=== PATIENT | male | born 1980 | race Caucasian/White ===

== ENCOUNTER 2019-04-19 00:01 | Inpatient (IN) ==
[2019-04-19] MEDS ORDERED: ONDANSETRON 4 MG OD TAB ONE (00:19)
[2019-04-19] MEDS ORDERED: ONDANSETRON INJ 2 MG/ML 2 ML VIAL ONE (00:44)
[2019-04-19 00:48] LABS: Basophils # (auto) 0.03 K/uL (0-0.2); Basophils % (auto) 0.4 %; Eosinophils # (auto) 0.12 K/uL (0-0.5); Eosinophils % (auto) 1.5 %; Hematocrit (blood only) 41.6 % (42-52); Hemoglobin 14.4 g/dL (14.0-18.0); Immature Granulocytes # (auto) 0.03 K/uL (0.00-0.02); Immature Granulocytes % (auto) 0.4 %; Lymphocytes # (auto) 1.57 K/uL (1.2-3.4); Mean Corpuscular Hemoglobin 30.6 pg (25-34); Mean Corpuscular Hgb Conc 34.6 g/dL (32-36); Mean Corpuscular Volume 88.5 fL (80-100); Mean Platelet Volume 9.3 fL (7.4-10.4); Monocytes # (auto) 0.56 K/uL (0.11-0.59); Monocytes % (auto) 7.1 %; Neutrophils # (auto) 5.53 K/uL (1.4-6.5); Neutrophils % (auto) 70.6 %; Platelet Count 176 K/uL (130-400); RDW Coefficient of Variation 13.2 % (11.5-14.5); RDW Standard Deviation 42.5 fL (36.4-46.3); White Blood Count 7.84 K/uL (4.8-10.8)
[2019-04-19 00:59] LABS: INR 1.1 (0.9-1.1); Partial Thromboplastin Ratio 0.9; Partial Thromboplastin Time 23.3 Seconds (21.0-31.0); Prothrombin Time 10.8 Seconds (9.0-12.0)
[2019-04-19] MEDS ORDERED: IOVERSOL 100ml IV PRN (00:59)
[2019-04-19 01:06] LABS: Alanine Aminotransferase 33 U/L (12-78); Aspartate Aminotransferase 16 U/L (15-37); BUN Creatinine Ratio 12.1 (10-20); Blood Urea Nitrogen 12 mg/dl (7-18); Calcium 8.9 mg/dl (8.5-10.1); Carbon Dioxide 28 mmol/L (21-32); Chloride 107 mmol/L (98-107); Creatinine Clr Calc Pharmacy 115.9 ml/min; Est GFR (African American) 105.3; Est GFR (Non-African American) 90.9; Glucose 153 mg/dl (70-99); Magnesium 2.1 mg/dl (1.8-2.4); Potassium 3.8 mmol/L (3.5-5.1); Sodium 141 mmol/L (136-145)
[2019-04-19 01:11] LABS: Albumin Globulin Ratio 1.1 (0.9-2); Alkaline Phosphatase 82 U/L (45-117); Bilirubin,Total 0.6 mg/dl (0.2-1); Globulin 3.8 gm/dl (2.5-4.0); Total Protein 7.8 gm/dl (6.4-8.2); Troponin I < 0.015 ng/ml (0-0.045)
[2019-04-19] MEDS ORDERED: PROCHLORPERAZINE 5 MG/ML 2 ML VIAL ONE (01:45)
--- NOTE | 2019-04-19 03:15 | History & Physical Report ---
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 CTA of neck showed dissection of extracranial portion of right vertebral artery at C1 level and ascending. CTA of head shows complete occlusion of the intracranial portion of the right vertebral artery. [facility] [place] long-term dual antiplatelet therapy. After discussion with neurology Dr. Damon, patient will be begun on low-dose heparin infusion without bolus, titrating up slowly. MRI brain has been ordered for tonight. Would order follow-up CT of head again tomorrow after anticoagulated for 12 hours. Ischemic stroke without TPA protocol initiated. Present on Admission?: Yes History of Present Illness Chief Complaint: The patient presented to the emergency department this evening after awakening from sleep around 11 AM with abnormal right-sided facial sensation, and difficulty controlling his right arm and right leg. Primary Care Provider: Oly Pandya The patient is a 39-year-old male who initially developed some generalized weakness and dizziness during the afternoon of 04/18, was seen in the emergency department, received symptomatic treatment, with a negative work-up, and was then discharged home. He was awoken from sleep at 11:00 this evening by an abnormal facial sensation on the right, and decreased ability to control his right arm and right leg. His reports that he was unable to walk and needed help with balancing. He denies any recent trauma or any recent travel or sick exposures. The patient was assessed as a stroke alert, and underwent a CTA of the head without contrast which was negative. CTA of the neck showed a dissection of the right vertebral artery at the level of C1 and ascending, until the intracranial portion, seen in the CTA of the head showed an occluded right vertebral artery intracranially. The patient was assessed by tele-stroke from [facility], who suggested dual antiplatelet therapy. Allergies Allergy/AdvReac Type Severity Reaction Status Date / Time Penicillins Allergy Intermediate HAPPENED Verified 04/19/19 00:59 A CHILD Home Medications Home Medications Medication Instructions Recorded Confirmed Type ibuprofen 400 - 800 mg PO DIRECTED PRN 04/18/19 04/19/19 History acetaminophen [Tylenol Extra 500 - 1,000 mg PO DIRECTED PRN 04/19/19 04/19/19 History Strength] Past Med/Surg History Medical History No significant past medical history Surgical History No significant past surgical history Family History Other No pertinent family history Social History Preferred Language: Turkmen Communication Ability: Effective Visual Impairment: No 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 Beliefs That Will Affect Care: None marital status: Current Living Situation: Spouse and Family current occupational status: employed Other Information That Helps Us Care for You: No Feels Safe at Home: Yes Safety Concerns: Feels Safe At This Time Smoking Status: Never smoker Hx Alcohol Use: Yes Alcohol type: beer Hx Substance Use: No Review of Systems Review of Systems: The patient denies chest pain, palpitations, shortness of breath, dyspnea on exertion, cough, lower extremity swelling, sore throat, fevers, chills, sweats, weight change, fatigue, nausea, vomiting, diarrhea , constipation, abdominal pain, pelvic pain, blood in urine or stool, dysuria, urinary frequency or urgency, memory loss, loss of consciousness, rash, abnormal bruising or bleeding, generalized arthralgias or myalgias, back or neck pain, or night sweats. The review of systems is otherwise negative other than for that already noted a ilsa, and at least 10 systems have been reviewed. Physical Exam Physical Exam: The patient is awake, alert and oriented 3, well developed and well nourished, normocephalic and atraumatic, lying in bed and in no acute distress. HEENT--PERRL, EOMI, mucous membranes and oropharynx normal. Neck--supple. No JVD. No bruits. Thyroid normal, trachea midline, no adenopathy. Heart--normal S1 and S2. No murmurs, rubs or gallops. Lungs--clear bilaterally, no respiratory distress, no accessory muscle use. Abdomen--normal bowel sounds and soft. Nontender. Nondistended. Extremities--no cyanosis or clubbing. No edema. There are good distal pulses b/l. Dermatologic--normal skin turgor, normal color, no abnormal lymph nodes, no rash. Neurologic/rheumatologic-cranial nerves II through XII grossly intact except for the following abnormal right facial sensation. Abnormal vestibular function right upper extremity and right lower extremity Psychiatric--normal affect. Results & Data Vital Signs (Past 12 Hours) Vital Signs Temp Pulse Pulse Resp BP BP Pulse Ox 04/19/19 02:00 49 L 20 127/81 98 04/19/19 01:46 50 L 18 148/91 H 04/19/19 01:45 59 L 19 04/19/19 01:30 49 L 16 129/88 97 04/19/19 01:15 54 L 16 146/83 H 98 04/19/19 01:03 50 L 16 139/84 99 04/19/19 01:00 53 L 16 98 04/19/19 00:55 56 L 18 150/90 H 99 04/19/19 00:39 59 L 14 129/71 98 04/19/19 00:33 50 L 14 97 04/19/19 00:20 59 L 15 137/86 98 04/19/19 00:17 63 13 99 04/19/19 00:16 98 H 18 150/81 H 98 04/19/19 00:15 52 L 14 150/81 H 98 04/19/19 00:03 97.5 F L 56 L 18 153/94 H 98 Laboratory Results Laboratory Results WBC 7.84 K/uL (4.8-10.8) 04/19/19 00:37 RBC 4.70 M/uL (4.7-6.1) 04/19/19 00:37 Hgb 14.4 g/dL (14.0-18.0) 04/19/19 00:37 Hct 41.6 % (42-52) L 04/19/19 00:37 MCV 88.5 fL (80-100) 04/19/19 00:37 MCH 30.6 pg (25-34) 04/19/19 00:37 MCHC 34.6 g/dL (32-36) 04/19/19 00:37 RDW Std Deviation 42.5 fL (36.4-46.3) 04/19/19 00:37 RDW Coeff of [place] 13.2 % (11.5-14.5) 04/19/19 00:37 Plt Count 176 K/uL (130-400) 04/19/19 00:37 MPV 9.3 fL (7.4-10.4) 04/19/19 00:37 Immature Gran % (Auto) 0.4 % 04/19/19 00:37 Neut % (Auto) 70.6 % 04/19/19 00:37 Lymph % (Auto) 20.0 % 04/19/19 00:37 [place] % (Auto) 7.1 % 04/19/19 00:37 Eos % (Auto) 1.5 % 04/19/19 00:37 Baso % (Auto) 0.4 % 04/19/19 00:37 Immature Gran # (Auto) 0.03 K/uL (0.00-0.02) H 04/19/19 00:37 Neut # (Auto) 5.53 K/uL (1.4-6.5) 04/19/19 00:37 Lymph # (Auto) 1.57 K/uL (1.2-3.4) 04/19/19 00:37 [place] # (Auto) 0.56 K/uL (0.11-0.59) 04/19/19 00:37 Eos # (Auto) 0.12 K/uL (0-0.5) 04/19/19 00:37 Baso # (Auto) 0.03 K/uL (0-0.2) 04/19/19 00:37 PT 10.8 Seconds (9.0-12.0) 04/19/19 00:37 INR 1.1 (0.9-1.1) 04/19/19 00:37 APTT 23.3 Seconds (21.0-31.0) 04/19/19 00:37 PTT Ratio 0.9 04/19/19 00:37 Sodium 141 mmol/L (136-145) 04/19/19 00:37 Potassium 3.8 mmol/L (3.5-5.1) 04/19/19 00:37 Chloride 107 mmol/L (98-107) 04/19/19 00:37 Carbon Dioxide 28 mmol/L (21-32) 04/19/19 00:37 Anion Gap 6.0 (3-11) 04/19/19 00:37 BUN 12 mg/dl (7-18) 04/19/19 00:37 Creatinine 1.02 mg/dl (0.6-1.4) 04/19/19 00:37 Est Cr Clr Drug Dosing 115.9 ml/min 04/19/19 00:37 Est GFR ( Amer) 105.3 04/19/19 00:37 Est GFR (Non-Af Amer) 90.9 04/19/19 00:37 BUN/Creatinine Ratio 12.1 (10-20) 04/19/19 00:37 Glucose 153 mg/dl (70-99) H 04/19/19 00:37 POC Glucose 145 (70-99) H 04/19/19 00:38 Calcium 8.9 mg/dl (8.5-10.1) 04/19/19 00:37 Magnesium 2.1 mg/dl (1.8-2.4) 04/19/19 00:37 Total Bilirubin 0.6 mg/dl (0.2-1) 04/19/19 00:37 AST 16 U/L (15-37) 04/19/19 00:37 ALT 33 U/L (12-78) 04/19/19 00:37 Alkaline Phosphatase 82 U/L (45-117) 04/19/19 00:37 Troponin I < 0.015 ng/ml (0-0.045) 04/19/19 00:37 Total Protein 7.8 gm/dl (6.4-8.2) 04/19/19 00:37 Albumin 4.0 gm/dl (3.4-5.0) 04/19/19 00:37 Globulin 3.8 gm/dl (2.5-4.0) 04/19/19 00:37 Albumin/Globulin Ratio 1.1 (0.9-2) 04/19/19 00:37 Diagnostic Findings [facility] Patient: NICHOLAS REYES (Male) Age: 39 MR #: [id number] Status: ER Date: 04/19/19 00:57 Slices: [id number] History: SEVERE NECK PAIN, R/O CVA Priors: Tech: Alka Null @ [id number] Exams: CT HEAD, CTA HEAD, CTA NECK Contrast: IV Amt: 119 CC'S Accession Numbers: [id number] Preliminary Findings Only See Final Report For Complete Findings CT HEAD: No acute intracranial hemorrhage, mass effect, midline shift, hydrocephalus or acute infarct. Bony structures are intact. Soft tissues are unremarkable. CTA HEAD: There is a 1 cm complete occlusion of the right vertebral artery just proximal to the basilar artery. The remainder of the intracranial arteries are patent. No aneurysm. CTA NECK: There is mucosal irregularity and luminal narrowing at the upper portion of the right vertebral artery at the level of C1 concerning for dissection. This mucosal irregularity continues into the intracranial portion of the right vertebral artery which is then occluded as described above. No stenosis/occlusion or dissection of the carotid arteries or left vertebral artery. Radiologist: Rehana Alvarez MD Study ready at 01:02 and initial results transmitted at 01:21 Critical Value Communications Clear Time Type Notes 04/19/19 01:20 Call Doctor Regarding Other, called Dr. Francse on 04/19 01:20 (- 04:00) *This report constitutes a preliminary interpretation only. Non-acute findings felt to be unrelated to the clinical presentation may not be discussed in this report. The study will be interpreted and a final report will be generated by the local Radiologist the following shift. To reach the hospital radiology department call [phone]. If a discrepancy is found between the preliminary and final interpretations of this study, please notify us via our Client Portal at [email or web address].You can also fax this report with a description of the discrepancy, or include the final report, to our daytime fax number [phone].If faxing, please indicate the severity of discrepancy using one of the following categories: [ ] 1 - Agree/Informational [ ] 2 - Unlikely to Affect Management [ ] 3 - Possible Eventual Change of Management [ ] 4 - Probable Immediate Change of Management For all other patient related information, please fax us at [phone]. [id number] Code Status & VTE Plan Code Status Full code VTE Prophylaxis Plan VTE Prophylaxis will be ordered: Yes Critical Care Time Critical Care Time: Yes Total Critical Care Time: 65 Total critical care time was 65 minutes PG Care Time/CCT Total # of Minutes Spent Total Time Spent with Patient: Total time spent is greater than 50% in coordination of care (as documented) at patient's floor/unit and/or counseling patient: Critical Care Time: Yes Total Critical Care Time: 65
[2019-04-19] MEDS ORDERED: PHARMACIST DISCHARGE MED REC CONSULT PRN (03:18)
[2019-04-19] MEDS ORDERED: PROCHLORPERAZINE 10 MG in SYRINGE 8 ML IV PRN (03:27)
--- NOTE | 2019-04-19 04:24 | XRay Report ---
XR orbits for MRI CLINICAL HISTORY: 39 years-old Male presenting with pre-MRI, history of metal in right eye. TECHNIQUE: 3 views of the orbits were obtained. COMPARISON: None. FINDINGS: No radiopaque intraorbital foreign body. Bony orbits grossly intact. Paranasal sinuses grossly clear. Visualized portion of the calvarium intact. IMPRESSION: No intraorbital metallic foreign body to preclude MRI exam. Electronically signed by: Errol Segovia M.D. 04/19/2019 4:21 AM
--- NOTE | 2019-04-19 04:52 | Emergency Department Note ---
Entered by Tl Rodas acting as a scribe for History of Present Illness General Chief complaint: Neuro Symptoms/Deficit Stated complaint: NUMBNESS ON RIGHT SIDE,VOMITING Time Seen by Provider: 04/19/19 00:11 Source: patient History of Present Illness Onset (ago): hour(s) 1 Location: face, upper extremity and right Pain Consistency: + constant Maximum Pain Intensity: 10 Quality: + other (numbness and dysfunction) Associated symptoms: + denies other symptoms (abdominal pain) and + other (sensitivity to light, neck pain to right shoulder) The patient is a 39 y/o male who presents to the ED w/ CC of constant numbness to the right side of his face and dysfunction of his right arm beginning an hour ago. The patient states he was evaluated in the ED earlier today because he almost passed out and could not find his footing. He reports his knees were weak was well. The patient notes he was discharged with meclizine to treat possible vertigo. He states he was fine this morning. The patient reports he took a nap from 6:30pm to 11:00pm. He notes when he woke up, his neck pain increased to his right shoulder, and he started sweating. The patient states he also developed right sided numbness to his face, and it feels like his face is tingling when someone touches the right side. He notes he also was not able to walk and feels like he cannot control his right arm. The patient states he tried to put an ice pack on his neck, but it did not help. He reports he is right handed and light severely increases his head discomfort. He states he vomited three time this evening, once on his way here, a second when he was in getting into a wheelchair, and the third was in the room. The patient notes he does not have a history of migraines. He denies abdominal pain. Home Medications Home Medications Medication Instructions Recorded Confirmed Type ibuprofen 400 - 800 mg PO DIRECTED PRN 04/18/19 04/19/19 History acetaminophen [Tylenol Extra 500 - 1,000 mg PO DIRECTED PRN 04/19/19 04/19/19 History Strength] Allergies Allergy/AdvReac Type Severity Reaction Status Date / Time Penicillins Allergy Intermediate HAPPENED Verified 04/19/19 00:59 A CHILD Past Med/Surg History Medical History No significant past medical history Surgical History No significant past surgical history Family History Other No pertinent family history Social History Preferred Language: Mozamb[place] Communication Ability: Effective Visual Impairment: No 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 and A total of 10 systems reviewed and were otherwise negative Physical Exam Vital Signs Vital Signs - 24 hr 04/19/19 00:03 04/19/19 00:15 04/19/19 00:16 Temperature 36.4 C L Temperature Source Oral Sepsis Recent Fever Within 48 Hours No Sepsis Action Taken by Nursing No Action Required Pulse Rate 56 L 52 L Pulse Rate [Apical] 98 H Pulse Rate from SpO2 Sensor 55 L Pulse Rhythm [Apical] Regular Pulse Strength [Apical] Normal Respiratory Rate 18 14 18 Respiratory Effort / Characteristics Non-Labored Non-Labored Spontaneous Respiratory Depth Normal Normal Respiratory Pattern Regular Blood Pressure 153/94 H 150/81 H Blood Pressure [Right Arm] 150/81 H Blood Pressure Mean 113 104 Blood Pressure Mean [Right Arm] 104 Pulse Oximetry 98 98 98 Oxygen Delivery Method Room Air Room Air Room Air 04/19/19 00:17 04/19/19 00:20 04/19/19 00:33 Temperature Temperature Source Sepsis Recent Fever Within 48 Hours Sepsis Action Taken by Nursing Pulse Rate 63 59 L 50 L Pulse Rate [Apical] Pulse Rate from SpO2 Sensor 62 57 L 52 L Pulse Rhythm [Apical] Pulse Strength [Apical] Respiratory Rate 13 15 14 Respiratory Effort / Characteristics Respiratory Depth Respiratory Pattern Blood Pressure 137/86 Blood Pressure [Right Arm] Blood Pressure Mean 103 Blood Pressure Mean [Right Arm] Pulse Oximetry 99 98 97 Oxygen Delivery Method 04/19/19 00:39 04/19/19 00:55 04/19/19 01:00 Temperature Temperature Source Sepsis Recent Fever Within 48 Hours Sepsis Action Taken by Nursing Pulse Rate 59 L 56 L 53 L Pulse Rate [Apical] Pulse Rate from SpO2 Sensor 58 L 56 L 52 L Pulse Rhythm [Apical] Pulse Strength [Apical] Respiratory Rate 14 18 16 Respiratory Effort / Characteristics Respiratory Depth Respiratory Pattern Blood Pressure 129/71 150/90 H Blood Pressure [Right Arm] Blood Pressure Mean 90 110 Blood Pressure Mean [Right Arm] Pulse Oximetry 98 99 98 Oxygen Delivery Method 04/19/19 01:03 04/19/19 01:15 04/19/19 01:30 Temperature Temperature Source Sepsis Recent Fever Within 48 Hours Sepsis Action Taken by Nursing Pulse Rate 50 L 54 L 49 L Pulse Rate [Apical] Pulse Rate from SpO2 Sensor 52 L 54 L 49 L Pulse Rhythm [Apical] Pulse Strength [Apical] Respiratory Rate 16 16 16 Respiratory Effort / Characteristics Respiratory Depth Respiratory Pattern Blood Pressure 139/84 146/83 H 129/88 Blood Pressure [Right Arm] Blood Pressure Mean 102 104 101 Blood Pressure Mean [Right Arm] Pulse Oximetry 99 98 97 Oxygen Delivery Method 04/19/19 01:45 04/19/19 01:46 04/19/19 02:00 Temperature Temperature Source Sepsis Recent Fever Within 48 Hours Sepsis Action Taken by Nursing Pulse Rate 59 L 50 L 49 L Pulse Rate [Apical] Pulse Rate from SpO2 Sensor 48 L Pulse Rhythm [Apical] Pulse Strength [Apical] Respiratory Rate 19 18 20 Respiratory Effort / Characteristics Respiratory Depth Respiratory Pattern Blood Pressure 148/91 H 127/81 Blood Pressure [Right Arm] Blood Pressure Mean 110 96 Blood Pressure Mean [Right Arm] Pulse Oximetry 98 Oxygen Delivery Method 04/19/19 03:00 Temperature Temperature Source Sepsis Recent Fever Within 48 Hours Sepsis Action Taken by Nursing Pulse Rate 47 L Pulse Rate [Apical] Pulse Rate from SpO2 Sensor 46 L Pulse Rhythm [Apical] Pulse Strength [Apical] Respiratory Rate 7 L Respiratory Effort / Characteristics Respiratory Depth Respiratory Pattern Blood Pressure 132/87 Blood Pressure [Right Arm] Blood Pressure Mean 102 Blood Pressure Mean [Right Arm] Pulse Oximetry 99 Oxygen Delivery Method HEENT: Head - normocephalic and atraumatic. Pupils are equal, round, and reactive to light. Extraocular eye muscles are intact and sclera are anicteric. Ears - bilaterally patent canals with noninjected tympanic membranes and no evidence of hemotympanum. Nose - moist nasal mucosa without discharge. Mouth - moist buccal mucosa. Oropharynx is nonerythematous and there is no tonsillar exudate or edema noted. Neck: Supple; no JVD, nuchal rigidity, cervical lymphadenopathy, or auscultated bruits. Heart: Regular rate and rhythm. There is a normal S1 and S2 with no murmurs, clicks, or gallops appreciated. Lungs: Clear to auscultation bilaterally with no wheezes, rales, or rhonchi. Abdomen: Soft, completely nontender, nondistended, with good bowel sounds. There are no palpable pulsatile masses or hepatosplenomegaly. There is no guarding, rigidity, or rebound noted. Extremities: No evidence of cyanosis, clubbing, or edema. There are easily palpable peripheral pulses. Neuro:The patient is awake and alert, oriented to day, time, and place. Numbness to the right side of the face and tongue. Muscle strength is 5/5 in all 4 extremities. 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 There is positive cerebellar testing with pass-pointing with the right hand. Course 0017: The patient was evaluated in room B06. A complete history and physical examination were performed. Nursing notes and previous electronic medical records were reviewed.After evaluation, a STROKE alert was called and the patient was transferred to room B01. 0019: Ordered Zofran ODT 4mg PO. An IV lock will be initiated and labs were drawn. He will go emergently for CTA of the brain and neck 0043: I discussed the patients case with Dr. Mccarthy, [facility]. She is fully aware and would like to see the CT results first. 0044: Ordered Zofran 4mg IV 0119: I discussed the patients case with DR. Alvarez, [facility]. I was informed of the patients CT results. 0127: I updated the patients . She denies a history of trauma and recent visits to the chiropractor. 0131: I spoke with Dr. Mccarthy again. I updated her of the CT results, and she states a transfer to a tertiary care center is not warranted. She recommended dual antiplatelet therapy. 0145: The patient continues to have nausea and vomiting. I ordered Prochlorperazine 5 mg IV 0148: Upon reevaluation, I discussed findings and results with the patient and his . They verbalized agreement of the treatment plan. 0208: I spoke with Dr. Lake of the [facility]. The patient will be evaluated for further management and care. Administered Medications Ioversol (Optiray 320 100ml) 119 ml IV ONCE PRN PRN Reason: Interaction Checking Stop: 04/23/19 00:58 Last Admin: 04/19/19 00:59 Dose: 119 ml Documented by: [id number] Discontinued Medications Ondansetron HCl (Zofran Odt) Confirm Administered Dose 4 mg .ROUTE .STK-MED ONE Stop: 04/19/19 00:20 Last Admin: 04/19/19 00:19 Dose: 4 mg Documented by: [id number] Ondansetron HCl (Zofran) Confirm Administered Dose 4 mg .ROUTE .STK-MED ONE Stop: 04/19/19 00:45 Last Admin: 04/19/19 00:55 Dose: 4 mg Documented by: [id number] Prochlorperazine (Compazine) Confirm Administered Dose 10 mg .ROUTE .STK-MED ONE Stop: 04/19/19 01:46 Last Admin: 04/19/19 01:50 Dose: 5 mg Documented by: [id number] Medical Decision Making Differential Diagnosis Differential diagnosis includes: CVA, intracranial mass/hemorrhage, vertebral artery dissection, posterior circulation stroke. Medical Records Attestation: I reviewed the patient's medical records. Home Medications Current Medication List: was personally reviewed by me Laboratory Data Attestation: I reviewed the patient's lab results. Result diagrams: 04/19/19 00:37 04/19/19 00:37 Lab Results 04/19/19 04/19/19 04/19/19 Range/Units 00:37 00:37 00:37 WBC 7.84 (4.8-10.8) K/uL RBC 4.70 (4.7-6.1) M/uL Hgb 14.4 (14.0-18.0) g/dL Hct 41.6 L (42-52) % MCV 88.5 (80-100) fL MCH 30.6 (25-34) pg MCHC 34.6 (32-36) g/dL RDW Std Deviation 42.5 (36.4-46.3) fL RDW Coeff of Petrona 13.2 (11.5-14.5) % Plt Count 176 (130-400) K/uL MPV 9.3 (7.4-10.4) fL Immature Gran % (Auto) 0.4 % Neut % (Auto) 70.6 % Lymph % (Auto) 20.0 % Sargent % (Auto) 7.1 % Eos % (Auto) 1.5 % Baso % (Auto) 0.4 % Immature Gran # (Auto) 0.03 H (0.00-0.02) K/uL Neut # (Auto) 5.53 (1.4-6.5) K/uL Lymph # (Auto) 1.57 (1.2-3.4) K/uL Sargent # (Auto) 0.56 (0.11-0.59) K/uL Eos # (Auto) 0.12 (0-0.5) K/uL Baso # (Auto) 0.03 (0-0.2) K/uL PT 10.8 (9.0-12.0) Seconds INR 1.1 (0.9-1.1) APTT 23.3 (21.0-31.0) Seconds PTT Ratio 0.9 Sodium 141 (136-145) mmol/L Potassium 3.8 (3.5-5.1) mmol/L Chloride 107 (98-107) mmol/L Carbon Dioxide 28 (21-32) mmol/L Anion Gap 6.0 (3-11) BUN 12 (7-18) mg/dl Creatinine 1.02 (0.6-1.4) mg/dl Est Cr Clr Drug Dosing 115.9 ml/min Est GFR ( Amer) 105.3 Est GFR (Non-Af Amer) 90.9 BUN/Creatinine Ratio 12.1 (10-20) Glucose 153 H (70-99) mg/dl POC Glucose (70-99) Calcium 8.9 (8.5-10.1) mg/dl Magnesium 2.1 (1.8-2.4) mg/dl Total Bilirubin 0.6 (0.2-1) mg/dl AST 16 (15-37) U/L ALT 33 (12-78) U/L Alkaline Phosphatase 82 (45-117) U/L Troponin I < 0.015 (0-0.045) ng/ml Total Protein 7.8 (6.4-8.2) gm/dl Albumin 4.0 (3.4-5.0) gm/dl Globulin 3.8 (2.5-4.0) gm/dl Albumin/Globulin Ratio 1.1 (0.9-2) 04/19/19 Range/Units 00:38 WBC (4.8-10.8) K/uL RBC (4.7-6.1) M/uL Hgb (14.0-18.0) g/dL Hct (42-52) % MCV (80-100) fL MCH (25-34) pg MCHC (32-36) g/dL RDW Std Deviation (36.4-46.3) fL RDW Coeff of Petrona (11.5-14.5) % Plt Count (130-400) K/uL MPV (7.4-10.4) fL Immature Gran % (Auto) % Neut % (Auto) % Lymph % (Auto) % Sargent % (Auto) % Eos % (Auto) % Baso % (Auto) % Immature Gran # (Auto) (0.00-0.02) K/uL Neut # (Auto) (1.4-6.5) K/uL Lymph # (Auto) (1.2-3.4) K/uL Sargent # (Auto) (0.11-0.59) K/uL Eos # (Auto) (0-0.5) K/uL Baso # (Auto) (0-0.2) K/uL PT (9.0-12.0) Seconds INR (0.9-1.1) APTT (21.0-31.0) Seconds PTT Ratio Sodium (136-145) mmol/L Potassium (3.5-5.1) mmol/L Chloride (98-107) mmol/L Carbon Dioxide (21-32) mmol/L Anion Gap (3-11) BUN (7-18) mg/dl Creatinine (0.6-1.4) mg/dl Est Cr Clr Drug Dosing ml/min Est GFR ( Amer) Est GFR (Non-Af Amer) BUN/Creatinine Ratio (10-20) Glucose (70-99) mg/dl POC Glucose 145 H (70-99) Calcium (8.5-10.1) mg/dl Magnesium (1.8-2.4) mg/dl Total Bilirubin (0.2-1) mg/dl AST (15-37) U/L ALT (12-78) U/L Alkaline Phosphatase (45-117) U/L Troponin I (0-0.045) ng/ml Total Protein (6.4-8.2) gm/dl Albumin (3.4-5.0) gm/dl Globulin (2.5-4.0) gm/dl Albumin/Globulin Ratio (0.9-2) Imaging Data Radiologist's Impression: Radiology results as stated below per my review and the [facility] radiologist's interpretation: CT HEAD: No acute intracranial hemorrhage, mass effect, midline shift, hydrocephalus or acute infarct. Bony structures are intact. Soft tissues are unremarkable. CTA HEAD: There is a 1 cm complete occlusion of the right vertebral artery just proximal to the basilar artery. The remainder of the intracranial arteries are patent. No aneurysm. CTA NECK: There is mucosal irregularity and luminal narrowing at the upper portion of the right vertebral artery at the level of C1 concerning for dissection. This mucosal irregularity continues into the intracranial portion of the right vertebral artery which is then occluded as described above. No stenosis/occlusion or dissection of the carotid arteries or left vertebral artery. Radiologist: Rehana Alvarez MD Study ready at 01:02 and initial results transmitted at 01:21 ECG Data Attestation: I personally reviewed and interpreted this ECG as follows: Indication: bradycardia Rate (beats per minute): 56 Rhythm: sinus bradycardia Findings: no PAC, no PVC, no ST depression, no ST elevation, no acute ischemic change and no ectopy Blood Pressure Blood Pressure Findings: Elevated blood pressure Blood Pressure Disposition: further management by hospitalist DONAVAN Cano The patient is a 39 y/o male who presents to the ED w/ CC of constant numbness to the right side of his face and dysfunction of his right arm beginning an hour ago. The patient had vertiginous symptoms earlier in the day and since has developed worsening right-sided neck pain, diaphoresis, nausea, photophobia and vomiting. CT angiogram of the neck revealed a vertebral artery dissection with occlusion extending up into the intracranial portion just proximal to the basilar artery. I discussed the case with neurology at [facility]. They felt the patient could be managed conservatively here on dual antiplatelet therapy. They recommended MRI of the brain. This was ordered. I discussed the case with Dr. Dsouza and he will evaluate the patient for further management. Impression & Plan Dissecting hemorrhage of right vertebral artery Critical Care Time Critical Care Time: Yes Total Critical Care Time: 65 I have personally spent 65 minutes of critical care time in the direct management of this patient. This includes bedside care, interpretation of diagnostic studies, and testing, discussion with consultants, patient, and family members, and other required patient management activities. This 65 minutes is in excess of all separately billable procedures. Discharge Plan Visit Data *Final* Discharge Date/Time: 04/19/19 03:45 Chief Complaint: Neuro Symptoms/Deficit Stated Complaint: NUMBNESS ON RIGHT SIDE,VOMITING ED Provider: Linda Frances Discharge Problem: Dissecting hemorrhage of right vertebral artery Patient Disposition: Admitted As Inpatient Discharge Instructions Interventions: ED Discharge Assessment Last Done: 04/19/19 03:45 The scribe's documentation has been prepared under my direction and personally reviewed by me in its entirety. I confirm that the note above accurately reflects all work, treatment, procedures, and medical decision making performed by me.
[2019-04-19] MEDS ORDERED: GADOBUTROL 30ML VIAL IV PRN (05:13)
[2019-04-19] MEDS ORDERED: ICU PROTOCOL FOR HYPERGLYCEMIA PRN (05:33)
[2019-04-19] MEDS ORDERED: HEPARIN 25000 UNIT/500 ML D5W IV ONE (05:35)
[2019-04-19] MEDS: NORMOSOL-R 1,000 ML IV SCH ×2 (05:48→15:56)
[2019-04-19] MEDS ORDERED: HEPARIN SODIUM/DEXTROSE 25,000 UNITS/500 ML BAG IV SCH (06:00)
[2019-04-19 06:04] LABS: BUN Creatinine Ratio 11.6 (10-20); Calcium 8.8 mg/dl (8.5-10.1); Creatinine Clr Calc Pharmacy 124.4 ml/min; Est GFR (African American) 114.8
--- NOTE | 2019-04-19 06:07 | Critical Care Consultation ---
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 NEURO - * CAM ICU: NEGATIVE * CVA: * Secondary to RIGHT sided vertebral artery dissection with clot burden. * Initially presented earlier in day w/ c/o neck pain alone. CT cervical spine w/o significant findings. * Development of intense nausea, vomiting, and dizziness consistent w/ effects of vertebral artery injury. * c/o RIGHT sided paresthesias/numbness --> MRI to follow. * All symptoms resolved while in ED s/p Compazine administration. Should be remembered if rebound s/s of N/V. * Per ED conversation w/ Neurology - Low dose Heparin gtt. * Appreciate Neuro guidance. * Continue to address any treatable s/s. * Frequent Neuro checks. CARDIAC/VASCULAR - * No h/o CAD, HTN, HLD, etc. * While further evaluation of intracardiac shunting would typically be pursued in this case, I am uncertain of utility given findings of structural injury on CTA. * EKG: Sinus Chon@56bpm. No ST/T-wave changes. QTc 411ms. * Monitor on telemetry. RESPIRATORY - * No h/o Pulmonary disease. * Saturating well on room air GI/NUTRITION - * Progress diet as tolerated. * Prophylaxis: Famotidine. RENAL/LYTES - * No significant electrolyte derangments. - * No concerns at this time. ENDO - * No h/o DM or Thyroid Dz. * BSGs per unit protocol. ISS --> gtt per unit policy. HEME - * Stable H&H ID - * No concerns for infectious contribution at this time. LINES/IV ACCESS - * PIVs x2 DVT PROPHYLAXIS - * Heparin gtt * SCDs Thank you for allowing us to participate in the care of this patient. Please refer to my attending physician's documentation for any further recommendations. (2) Vertebral artery dissection: (3) Stroke due to occlusion of right vertebral artery: (4) Nausea and vomiting: (5) Photophobia: (6) Paresthesias: (7) Cervical pain (neck): History of Present Illness Attending Physician: Noble Lake MD History of Present Illness Patient is a 39-year-old male with no reported significant past medical history on no daily medications who presented to the emergency department earlier this morning with complaints of intense RIGHT-sided neck pain and associated dizziness, lightheadedness, nausea, and significant vomiting. In addition, he was complaining of paresthesias to the RIGHT sided arm and face. Stroke alert was called and patient was sent directly for CT of the brain as well as CTA of the head and neck. Patient received Zofran as well as Compazine in the emergency department with moderate relief of symptoms. Patient was found to have an acute RIGHT-sided vertebral artery occlusion with concerns for vertebral artery dissection distally. Neurology was consulted in the emergency department. Recommendations for low-dose heparin drip at this time. Patient was sent to MRI prior to arrival in the ICU. Upon arrival in the ICU, the patient is awake, alert, and oriented. He reports that he did notice some transient dizziness with transitioning from the litter to the bed, but other than that, he reports complete resolve of symptoms including dizziness, RIGHT-sided neck pain, photophobia, phonophobia, nausea, vo miting, and paresthesias. He reports that he now has better control of his RIGHT upper extremity with better fine motor movements. In conversation with the patient, he reports that he has been experiencing pain to the RIGHT sided neck for approximately 1 week. He does not remember a specific event which precipitated his symptoms, and throughout the week he only reported RIGHT-sided neck pain alone. He does admit that he had been experiencing severe episodes of coughing with a recent upper respiratory infection. He reports that his cough was so intense that he would "see Freire" afterwards. He does occasionally crack his neck, however he does not remember any specific event of having symptoms after manipulation of the spine. He has not undergone recent chiropractic manipulation. There is been no recent falls or trauma. The patient reports 0 pain at this time. Patient had been seen in the emergency department earlier this afternoon for symptoms of dizziness and lightheadedness. He reports that he was having the persistent pain to the RIGHT sided neck which he had been experiencing for the past week. He underwent thorough evaluation including CT scan of the cervical spine and facial bones which offered no significant diagnosis. Patient was feeling somewhat better after evaluation and treatment in the emergency department. He went home and slept for approximately 5 hours and awoke shortly after 11 PM with the intense nausea, vomiting, and paresthesias. Patient currently denies any headaches, dizziness, lightheadedness, visual disturbances, slurred speech, facial droop, unilateral weakness/numbness, chest pain, palpitations, shortness of breath, nausea, vomiting, abdominal pain, or numbness/weakness into the extremities. Allergies Allergy/AdvReac Type Severity Reaction Status Date / Time Penicillins Allergy Intermediate HAPPENED Verified 04/19/19 00:59 A CHILD Home Medications Home Medications Medication Instructions Recorded Confirmed Type ibuprofen 400 - 800 mg PO DIRECTED PRN 04/18/19 04/19/19 History acetaminophen [Tylenol Extra 500 - 1,000 mg PO DIRECTED PRN 04/19/19 04/19/19 History Strength] Patient History Medical History No significant past medical history Surgical History No significant past surgical history Family History Other No pertinent family history Social History Preferred Language: Swedish Communication Ability: Effective Visual Impairment: No Limitations [place] Required: No Beliefs That Will Affect Care: None marital status: Current Living Situation: Spouse and Family current occupational status: employed Other Information That Helps Us Care for You: No Feels Safe at Home: Yes Safety Concerns: Feels Safe At This Time Smoking Status: Never smoker Hx Alcohol Use: Yes Alcohol type: beer Hx Substance Use: No Review of Systems Review of Systems: A complete 10 point review of systems was reviewed with the patient with pertinent positives and negatives as per history of present illness. All else were negative. Physical Exam Physical Exam: VITAL SIGNS - Vital signs and nursing notes were reviewed. GENERAL - 39-year-old male appearing his stated age who is in no acute distress. Communicates well with provider and answers questions appropriately. HEAD - Normocephalic, Atraumatic. No Christian's Sign or Raccoon's Eyes. No depressed skull fractures palpable. EYES - PERRL with EOMI bilaterally. Sclera anicteric. Palpebral conjunctiva pink and moist with no injection noted. EARS - No deformities of external structures noted on gross examination bilaterally. No pain elicited with palpation of the tragus bilaterally. External auditory canals without discharge or otorrhea. Tympanic membranes pearly wei without retraction or bulging. No fluid or purulent material visualized behind the TM. Handle of malleus, umbo, cone of light, pars tensa/flaccid all easily visualized. NOSE - Midline and without cyanosis. No epistaxis or purulent drainage noted. Septum midline without deviation or septal hematoma noted. MOUTH/OROPHARYNX - Without perioral cyanosis. Buccal mucosa pink and moist and without leukoplakia. Tongue midline with equal elevation of palate bilaterally. No tonsillar hypertrophy, erythema, or exudates noted. Good dentition noted. NECK - Neck with FROM. Supple to palpation. No lymphadenopathy noted. No nuchal rigidity. LUNGS - Chest wall symmetric without accessory muscle use, intercostals retractions, or central cyanosis. Normal vesicular breath sounds CTA B/L. No wheezes, rales, or rhonchi appreciated. CARDIAC - RRR with S1/S2. No murmur, rubs, or gallops appreciated. ABDOMEN - Abdominal contour flat without pulsations or visible masses. BS normoactive all four quadrants. No tenderness, palpable masses, hepatospleno megaly, or ascites noted. EXTREMITIES - No pretibial edema present. +3/5 radial and dorsalis pedis pulses palpated throughout. FROM with no tremors, fasciculations, or clonus noted on PROM throughout. +5/5 strength noted in UE/LE bilaterally. NEUROLOGIC - Cranial nerves II through XII grossly intact. Sensory intact to light touch throughout. Patellar reflexes +2/4. Patient able to perform rapid al ternating movements appropriately. Negative Romberg and Pronator Drift. PSYCH - A&Ox3 and cooperates fully with examiner. Pt is very pleasant and interacts well with examiner. Results & Data Vital Signs (Past 12 Hours) Vital Signs Temp Pulse Pulse Resp BP BP Pulse Ox 04/19/19 04:33 18 96 04/19/19 03:45 56 L 15 141/89 H 97 04/19/19 03:30 65 17 134/88 99 04/19/19 03:15 68 17 140/94 98 04/19/19 03:00 47 L 7 L 132/87 99 04/19/19 02:00 49 L 20 127/81 98 04/19/19 01:46 50 L 18 148/91 H 04/19/19 01:45 59 L 19 04/19/19 01:30 49 L 16 129/88 97 04/19/19 01:15 54 L 16 146/83 H 98 04/19/19 01:03 50 L 16 139/84 99 04/19/19 01:00 53 L 16 98 04/19/19 00:55 56 L 18 150/90 H 99 04/19/19 00:39 59 L 14 129/71 98 04/19/19 00:33 50 L 14 97 04/19/19 00:20 59 L 15 137/86 98 04/19/19 00:17 63 13 99 04/19/19 00:16 98 H 18 150/81 H 98 04/19/19 00:15 52 L 14 150/81 H 98 04/19/19 00:03 36.4 C L 56 L 18 153/94 H 98 PG Care Time/CCT Total # of Minutes Spent Total Time Spent with Patient: Total time spent is greater than 50% in coordination of care (as documented) at patient's floor/unit and/or counseling patient:
[2019-04-19] MEDS: FAMOTIDINE 20 MG in SYRINGE 3 ML IV SCH ×2 (06:11→16:58)
--- NOTE | 2019-04-19 07:14 | CT Scan Report ---
CT head/brain wo/w con CLINICAL HISTORY: Severe neck pain. Evaluate for cerebrovascular accident. COMPARISON STUDY: No previous studies for comparison. TECHNIQUE: Unenhanced and arterial phase images of the head were obtained. Intravenous injection of 1 19 cc Optiray 320 IV was uneventful. Sagittal coronal reconstructed reviewed as well as maximal inten sity projections on an independent 3-D workstation. Automated exposure control was utilized for the s tudy. A dose lowering technique was utilized adhering to the principles of ALARA. FINDINGS: No acute intracranial hemorrhage, midline shift or mass effect is present. Ventricular syst em is normal. Basilar cisterns are patent. There are no extra-axial collections. There are no finding s to suggest acute dural sinus thrombosis or acute territorial infarct. There are no significant calv arial abnormalities. Visual portions of the sinuses are clear. The bilateral M1, M2 2, A1 and A2 segments are patent. The anterior circulation is intact. There is o cclusion of the distal right vertebral artery. There is luminal irregularity of the distal cervical p ortion of the right vertebral artery suggestive of dissection which is better depicted on the CTA of the neck. Remainder of the posterior circulation remains intact. There is no intracranial aneurysm. IMPRESSION: 1. No acute intracranial hemorrhage or mass effect. 2. Occlusion of the distal right vertebral artery with luminal irregularity of the distal cervical po rtion of the right vertebral artery. The findings suggest dissection with occlusion of the intracrani al portion of the right vertebral artery. Electronically signed by: Yong Martinez M.D. 04/19/2019 7:13 AM
--- NOTE | 2019-04-19 07:29 | CT Scan Report ---
CT ANGIOGRAPHY OF THE NECK WITH CONTRAST CLINICAL HISTORY: Severe neck pain. COMPARISON STUDY: Cervical spine CT April 18, 2019. Technique: CT angiography of the carotid and vertebral arteries was obtained using [employer] 320 IV and 3D reconstruction on an independent workstation. NASCET criteria was utilized. Automated exposure c ontrol was utilized for the study. A dose lowering technique was utilized adhering to the principles of ALARA. CT DOSE: 1269.78 mGy.cm Findings: The bilateral common carotid and cervical internal carotid arteries are patent. There is no stenosis or dissection within these vessels. Note is made of significant luminal irregularity of the distal cervical portion of the right vertebral artery with occlusion of the distal right vertebral a rtery. This favors a dissection. The left vertebral artery is patent. Lung apices are clear. There is medialization of the right vocal cord. No cervical lymphadenopathy is present. There is no cervical spine fracture. IMPRESSION: 1. Significant luminal irregularity and narrowing of the cervical right vertebral artery at the C1 le camila and occlusion of the distal intracranial right vertebral artery. These findings suggest dissectio n with resultant occlusion. 2. Medialization of the right vocal cord which raises the possibility of vocal cord paralysis. Electronically signed by: Yong Martinez M.D. 04/19/2019 7:27 AM
[2019-04-19 07:47] LABS: Estimated Average Glucose 157 mg/dl; Hemoglobin A1C 7.1 % (4.5-5.6)
--- NOTE | 2019-04-19 08:01 | Magnetic Resonance Report ---
MRI OF THE BRAIN WITHOUT AND WITH IV CONTRAST CLINICAL HISTORY: vertebral artery dissection extends intracranial COMPARISON STUDY: Head CT and CTA of the head performed earlier today. TECHNIQUE: Utilizing a 1.5 Noemi magnet and dedicated coil, multiplanar, multiecho imaging of the br ain was performed pre and postcontrast administration. IV administration of 10 mL [address] contra [address] was uneventful. FINDINGS: There are no foci of restricted diffusion to suggest acute infarct. No acute intracranial h emorrhage, midline shift or mass effect is present. Brain volume is normal. Ventricular system is nor mal. Basilar cisterns are patent. There is no intracranial mass or pathologic enhancement. Abnormal f low-void for the distal right vertebral artery is noted. This is better depicted on prior CTA. Orbits are unremarkable. IMPRESSION: 1. No acute intracranial findings. 2. Abnormal flow-void for the distal right vertebral artery suggestive of vessel occlusion which is b maury depicted on CTA of the head performed earlier today. Electronically signed by: Yong Martinez M.D. 04/19/2019 8:00 AM
--- NOTE | 2019-04-19 09:35 | Neurology Consultation ---
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 Despite his vertiginous feelings, numbness and paresthesias of the face and limbs as well as weakness in the right arm and leg, he did not have an actual stroke. MRI of the brain was unremarkable. I believe he had transient neurologic dysfunction due to decrease flow from the dissection in the right posterior fossa. On neurologic examination today he has no focal findings, meningeal signs, or encephalopathy. Patient does have some cerebral vascular risk factors as noted by elevated lipids and hemoglobin A1c. His blood pressure has been mildly elevated as well since admission. Recommendations: 1. Discontinue heparin. The patient was already improved for several hours, by the time the heparin was started this morning. 2. Initiate 81 mg aspirin +70 5 mg clopidogrel daily. I will likely do this for at least 4-6 weeks then consider 81 mg aspirin by itself. 3. Increase activity as able. 4. Avoid his usual work or heavy lifting for several weeks. He could do light duty (for example, at a desk) until we follow up in clinic in several weeks. 5. Follow-up with his PCP Dr. Pandya for his hypertension, dyslipidemia, and elevated glucose. 6. Awaiting echocardiogram results. Overall, I spent a total of 120 minutes with this case including review of records, review of MRI films and CT angiography films, direct evaluation the pa tient at bedside and discussion of the case with the patient at bedside, his at bedside, nursing staff at bedside, Dr. Pires, and Dr. Nguyen including differential diagnosis and treatment options. History of Present Illness Reason for Consultation: Patient is A 39-year-old, who I was asked to see at the request of Dr. Lake, for neurologic consultation regarding carotid dissection Requesting Physician: Dr. Lake Attending Physician: Shankar Nguyen MD History of Present Illness Patient has no history of significant medical problems including no cardiac, hypertension, diabetes, dyslipidemia, or cigarette smoking history. Patient did have pulmonary sarcoidosis diagnosed by Dr. Bosch via bronchoscopy in 2007 which was successfully treated and is not an active problem currently. He last saw Dr. Bosch in 2012. About 2 weeks ago the patient had a significant upper respiratory tract infection creating a significant cough. He claims this was a very violent cough of a frequent repetitive nature. About a week ago it abated. One week ago patient noted some right sided neck pain. It was along the lateral aspect of the right neck from just behind the ear at the cervical occipital junction down along the side to the trapezius muscle. It was an annoying pain and he had no other symptoms associated. 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 He was under cars and moving his neck from side to side performing his work. In the morning of April 18 he was again working underneath vehicle as before and he had the onset of some vertiginous feelings and lightheadedness sometime around 07-10. He did not pass out. He became very hot and diaphoretic. At 1 point in the morning, he noticed his neck having a severe pain and got out from underneath the vehicle and few minutes later he was back to baseline. He arrived at the emergency room at 1333 on April 18 with a temperature of 36.8, pulse in the 70s, respiratory rate 16, blood pressure 156/95, and O2 saturation 97%. The patient was noted to have increase vertiginous feelings with flexion , extension, and rotation of the neck. He had no other neurologic symptoms. He was tender over the frontal and maxillary sinuses to a mild degree. CBC was unremarkable. Chem profile was unremarkable except for glucose of 190. CT scan of the sinuses were unremarkable. CT scan of the cervical spine showed no significant abnormalities although there were some mild degenerative changes at C4-5 and C5-6. He was sent home from the emergency room around 5:00 p.m.. He was still somewhat dizzy and vertiginous. Patient went to sleep around 1830 and slept until about 2300. He awoke with significant/severe right neck pain (the worst it ever was) eyes and ibuprofen helped a little. He had a hot diaphoretic feeling again and noticed that he was numb in the right side of the face. His right arm and leg were numb and weak and he could not walk well. His speech was reasonable and he had trouble focusing his vision. He was photophobic as well. He arrived at the emergency room at 0003, with a temperature 36.4, pulse of 56, respiratory rate of 18, blood pressure 153/94 and O2 saturation 98%. Patient had numbness on the right side of his face and tongue. Motor strength was described as being 5/5 in all 4 extremities and had a little bit of ataxia in his right upper extremity. Speech was unremarkable. CBC was unremarkable. Chem profile was unremarkable as well although the glucose was 153. CT scan of the head showed no acute changes. CT angiography of the head showed a 1 cm complete occlusion of the right vertebral artery just proximal to the basilar artery. The rest of the intracranial arteries were patent. CTA of the neck revealed a significant right vertebral narrowing at the level of C1 concerning for dissection with irregularities continuing into the intracranial portion which ended in occlusion as described by the basilar artery. There were no other carotid or left vertebral stenoses or anomalies. Hemoglobin A1c was 7.1. Total cholesterol was 276 and triglycerides were 182. Tele stroke with [facility] was performed and they recommended aspirin and Plavix. Dr. Lake was concerned about the patient's significant symptomatology and discussed the case with me at 0245. We elected to initiate heparin without bolus. The heparin, however, was not started until 0630. Patient states that shortly after 0300 he began feeling markedly better with much less neck pain, improved strength and sensation of the face arm and leg. He had no new problems or issues. Currently his blood pressure is 134/74 with a 1 out of 10 neck pain this morning. He has normal sensation in the right arm, leg, and face and feels fairly strong. Patient has no significant family history of neurologic issues. He does not know his father so he is not aware of that side of his family's medical history. Allergies Allergy/AdvReac Type Severity Reaction Status Date / Time Penicillins Allergy Intermediate HAPPENED Verified 04/19/19 00:59 A CHILD Home Medications Home Medications Medication Instructions Recorded Confirmed Type ibuprofen 400 - 800 mg PO DIRECTED PRN 04/18/19 04/19/19 History acetaminophen [Tylenol Extra 500 - 1,000 mg PO DIRECTED PRN 04/19/19 04/19/19 History Strength] Patient History Medical History No significant past medical history Surgical History History of umbilical hernia repair No significant past surgical history Family History Mother No problems noted. 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 Other Information That Helps Us Care for You: No Feels Safe at Home: Yes Safety Concerns: Feels Safe At This Time Smoking Status: Never smoker Hx Alcohol Use: Yes Alcohol type: beer and wine Alcohol Intake Frequency Comment: Occasional Hx Substance Use: No Review of Systems Constitutional: no fever, no fatigue and no weakness Eyes: no diplopia, no eye pain and no worsening vision Ear, Nose, Mouth, Throat: no ear pain, no tinnitus, no hearing loss, no dizziness, no snoring, no hoarseness and no dysphagia Respiratory: no cough and no dyspnea Cardiovascular: no chest pain, no palpitations and no lightheadedness Gastrointestinal: no abdominal pain, no nausea and no vomiting Genitourinary: no dysuria and no urinary incontinence Musculoskeletal: + neck pain; no back pain, no radicular pain, no joint pain and no myalgia Integumentary: no rash and no lesions Neurologic: + numbness; no gait abnormality, no localized weakness, no generalized weakness, no tingling, no tremor(s), no abnormal movements, no headache(s), no abnormal speech, no confusion and no memory loss Psychiatric: no depression, no irritability, no anxiety, no difficulty concentrating, no confusion and no hallucinations Endocrine: no fatigue and no flushing Hematologic / Lymphatic: no easy bleeding and no easy bruising Allergy / Immunological: no urticaria and no problem reported Physical Exam Physical Exam: The patient is right-handed. The patient is awake, alert, and attentive. Speech is normal without any aphasia or dysarthria. he can name objects, repeat phrases, and has normal spontaneous speech. Mentation and thought processes are intact, with orientation to person, place and time, and normal fund of knowledge. Attention and concentration are normal. Mood and affect are normal and appropriate. General appearance and grooming are normal. Short and long-term memory are intact. The discs are sharp with positive venous pulsations bilaterally. There are no exudates, hemorrhages, or blood vessel changes seen. Pupils are 4 mm bilaterally and reactive to light. Extraocular eye muscles are intact without nystagmus. Visual acuity and visual joya seem normal grossly to confrontation. There are no deficits to sensation in the face in all 3 distributions of the fifth cranial nerve bilaterally. Corneal reflexes are positive bilaterally. Facial strength and symmetry was normal bilaterally. Hearing seems normal to whisper and finger rub bilaterally. Palate moves well without asymmetry. There is normal sternocleidomastoid and trapezius (shoulder shrug) strength bilaterally. Tongue is midline with good strength bilaterally. Neck has a full range of motion without discomfort. There are no cervical bruits bilaterally. There are no cranial or ocular bruits. Heart is without murmur. There is a regular rhythm and rate. Cervical, thoracic, and lumbar spine are nontender to palpation. Gait was not tested but stands sitting up in bed was quite normal. With outstretched arms there is no drift. There are no resting, postural, or action tremors. There is no ataxia with finger to nose testing. There is good facility in the hands. No other abnormal involuntary movements are noted. Motor strength is 5/5 diffusely in the arms bilaterally including deltoids, biceps, triceps, brachioradialis, wrist flexors and extensors, news analyst, and intrinsic hand muscles. Motor strength is 5/5 diffusely in the legs bilaterally including hip flexors, quadriceps, hamstrings, gastrocnemius, tibialis anterior, tibialis posterior, and Peroneii muscles. Toe extensors are normal and there is good bulk in the extensor digitorum brevis muscles bilaterally. The limbs have good tone without rigidity or spasticity. There is no atrophy noted in the muscles. Muscle bulk is normal, there is no tenderness to palpation, no myotonia to percussion, and no fasciculations seen. Sensory examination is intact to touch and pin throughout all 4 limbs diffusely. Reflexes are 1/4 in the biceps, triceps, brachioradialis, quadriceps, and Achilles tendons bilaterally. There is no clonus bilaterally. Toes are downgoing with plantar stimulation bilaterally. Peripheral pulses are present and of normal quality distally in all 4 limbs. There is no peripheral edema noted in the limbs. Results & Data Vital Signs (Past 12 Hours) Vital Signs Temp Pulse Pulse Resp BP BP Pulse Ox 04/19/19 06:00 53 L 17 134/74 96 04/19/19 05:30 72 13 97 04/19/19 04:33 18 96 04/19/19 03:45 56 L 15 141/89 H 97 04/19/19 03:30 65 17 134/88 99 04/19/19 03:15 68 17 140/94 98 04/19/19 03:00 47 L 7 L 132/87 99 04/19/19 02:00 49 L 20 127/81 98 04/19/19 01:46 50 L 18 148/91 H 04/19/19 01:45 59 L 19 04/19/19 01:30 49 L 16 129/88 97 04/19/19 01:15 54 L 16 146/83 H 98 04/19/19 01:03 50 L 16 139/84 99 04/19/19 01:00 53 L 16 98 04/19/19 00:55 56 L 18 150/90 H 99 04/19/19 00:39 59 L 14 129/71 98 04/19/19 00:33 50 L 14 97 04/19/19 00:20 59 L 15 137/86 98 04/19/19 00:17 63 13 99 04/19/19 00:16 98 H 18 150/81 H 98 04/19/19 00:15 52 L 14 150/81 H 98 04/19/19 00:03 36.4 C L 56 L 18 153/94 H 98 Diagnostic Findings MRI OF THE BRAIN WITHOUT AND WITH IV CONTRAST CLINICAL HISTORY: vertebral artery dissection extends intracranial COMPARISON STUDY: Head CT and CTA of the head performed earlier today. TECHNIQUE: Utilizing a 1.5 Noemi magnet and dedicated coil, multiplanar, multiecho imaging of the brain was performed pre and postcontrast administration. IV administration of 10 mL of Gadavist contrast was uneventful. FINDINGS: There are no foci of restricted diffusion to suggest acute infarct. No acute intracranial hemorrhage, midline shift or mass effect is present. Brain volume is normal. Ventricular system is normal. Basilar cisterns are patent. There is no intracranial mass or pathologic enhancement. Abnormal flow-void for the distal right vertebral artery is noted. This is better depicted on prior CTA. Orbits are unremarkable. IMPRESSION: 1. No acute intracranial findings. 2. Abnormal flow-void for the distal right vertebral artery suggestive of vessel occlusion which is better depicted on CTA of the head performed earlier today. Electronically signed by: Yong Martinez M.D. 04/19/2019 8:[address] ANGIOGRAPHY OF THE NECK WITH CONTRAST CLINICAL HISTORY: Severe neck pain. COMPARISON STUDY: Cervical spine CT April 18, 2019. Technique: CT angiography of the carotid and vertebral arteries was obtained using [employer] 320 IV and 3D reconstruction on an independent workstation. NASCET criteria was utilized. Automated exposure control was utilized for the study. A dose lowering technique was utilized adhering to the principles of ALARA. CT DOSE: 1269.78 mGy.cm Findings: The bilateral common carotid and cervical internal carotid arteries are patent. There is no stenosis or dissection within these vessels. Note is made of significant luminal irregularity of the distal cervical portion of the right vertebral artery with occlusion of the distal right vertebral artery. This favors a dissection. The left vertebral artery is patent. Lung apices are clear. There is medialization of the right vocal cord. No cervical lymphadenopathy is present. There is no cervical spine fracture. IMPRESSION: 1. Significant luminal irregularity and narrowing of the cervical right vertebral artery at the C1 level and occlusion of the distal intracranial right vertebral artery. These findings suggest dissection with resultant occlusion. 2. Medialization of the right vocal cord which raises the possibility of vocal cord paralysis. Electronically signed by: Yong Martinez M.D. 04/19/2019 7:27 AM PG Care Time/CCT Total # of Minutes Spent Total Time Spent with Patient: Total time spent is greater than 50% in coordination of care (as documented) at patient's floor/unit and/or counseling p atient:
[2019-04-19] MEDS: ASPIRIN 81 MG ECTAB PO SCH (10:55)
[2019-04-19] MEDS: CLOPIDOGREL BISULFATE 75 MG TAB PO SCH (10:55)
[2019-04-19] MEDS: Heparin IV Low Dose *NO* Bolus IV SCH ×3 (11:13→17:37)
[2019-04-19] MEDS ORDERED: MoRPHine SULFATE 2 MG/ML CARP IV PRN (12:31)
[2019-04-19] MEDS: ACETAMINOPHEN SOL 650 MG/20.3 ML UDC PO PRN ×2 (13:00→20:54)
--- NOTE | 2019-04-19 22:19 | Hospitalist Progress Note ---
Date of Service April 19, 2019 Assessment & Plan (1) Vertebral artery dissection: 1 week history of neck pain exacerbated 04/18 causing transient vertiginous, paresthesias of right side of face and arm. Suspected transient neurological dysfunction due to decreased flow from the dissection in the right posterior fossa. No CVA on MRI. Discussed with Dr Damon. D/c heparin. Continue ASA + clopidogrel for 4-6 weeks then ASA alone Avoid usual work or heavy lifting for several weeks. Light work ok. Observe on telemetry overnight Aim home in AM Follow up with neurology in a few weeks. (2) DVT prophylaxis: On heparin drip overnight Defer further chemical prophylaxis due to young age, mobile and likely short admission Subjective Revisited history with the patient. No change from H&P. He reports his symptoms have now completely resolved. This occurred after waking up from sleeping after the Compazine given. Review of Systems Review of Systems: All systems reviewed & are unremarkable except as noted in HPI & below Physical Exam Constitutional: well developed, well nourished and + obese Eyes: PERRL, conjunctivae normal, anicteric sclerae Respiratory: normal respiratory effort, lungs clear to auscultation Cardiovascular: RRR, no murmur, no edema Gastrointestinal (Abdomen): normal bowel sounds, soft, nontender, no he patosplenomegaly Musculoskeletal: no cyanosis or clubbing, extremities motor strength 5/5 Skin: no rashes, warm and dry Neurologic: PERRL, EOMI, accommodation nl, no face palsy, no dysarthria normal touch/pain/proprioception, CN's II-XI intact bilaterally and awake; no focal motor deficits Speech / Cognition: normal speech Motor/Sensory: no tremor, normal movement and no pronator drift Psychiatric: A+Ox3, euthymic affect Results & Data Vital Signs (Past 12 Hours) Vital Signs Temp Pulse Pulse Resp BP BP Pulse Ox 04/19/19 18:58 98.6 F 70 20 131/86 95 04/19/19 11:00 57 L 17 138/86 97 PG Care Time/CCT Total # of Minutes Spent Total Time Spent with Patient: Total time spent is greater than 50% in coordination of care (as documented) at patient's floor/unit and/or counseling patient:
[2019-04-20] MEDS: FAMOTIDINE 20 MG in SYRINGE 3 ML IV SCH (06:05)
[2019-04-20] MEDS: ACETAMINOPHEN SOL 650 MG/20.3 ML UDC PO PRN (07:25)
[2019-04-20] MEDS: CLOPIDOGREL BISULFATE 75 MG TAB PO SCH (07:26)
[2019-04-20] MEDS: ASPIRIN 81 MG ECTAB PO SCH (07:26)
--- NOTE | 2019-04-20 10:49 | Neurology Progress Note ---
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 Despite his vertiginous feelings, numbness and paresthesias of the face and limbs as well as weakness in the right arm and leg, he did not have an actual stroke. MRI of the brain was unremarkable. Today he is relatively asymptomatic. I believe he had transient neurologic dysfunction due to decrease flow from the dissection in the right posterior fossa. Hypertension may have created vasospasm as well. On neurologic examination today he has no focal findings, meningeal signs, or encephalopathy. Patient does have some cerebral vascular risk factors as noted by elevated lip ids and hemoglobin A1c. His blood pressure has been mildly elevated as well since admission. Recommendations: 1. There is no indication for anticoagulation at this time. 2. Continue 81 mg aspirin +75 mg clopidogrel daily. I will likely do this for at least 4-6 weeks then consider 81 mg aspirin by itself. 3. Increase activity as able. 4. Avoid his usual work or heavy lifting for several weeks. He could do light duty (for example, at a desk) until we follow up in clinic in several weeks. 5. Follow-up with his PCP Dr. Pandya for his hypertension, dyslipidemia, and elevated glucose. Overall, I spent a total of 35 minutes with this case including review of records, direct evaluation the patient at bedside, and discussion of the case with the patient at bedside, his at bedside, nursing staff at bedside, and Dr. Nguyen including differential diagnosis and treatment options. Subjective The patient feels much better with no significant dizziness or vertigo. He has no neck pain on the right. He does have a mild generalized headache of a nonspecific nature which could be due to the way he has been sleeping and the fact that he typically drinks a lot of caffeinated sodas and has not had a lot of this in the hospital. He has no weakness or numbness in the limbs or face and has no speech problems or confusion. Nursing reports no new events overnight. Blood pressure is 151/75. Echocardiogram was unremarkable. Physical Exam Physical Exam: The patient is awake and alert, with normal speech and communication. Mood and affect are normal appropriate. Thought processes are intact with good long and short-term memory. There is no facial droop. Extraocular eye muscles are intact without nystagmus. Tongue is midline. Neck has a full range of motion without discomfort. Stance is normal sitting up in bed. Coordination of the arms is normal without tremor or ataxia. Motor strength is 5/5 in all major muscle groups of the arms and legs bilaterally, both proximally and distally. Results & Data Vital Signs (Past 12 Hours) Vital Signs Temp Pulse Pulse Resp BP BP Pulse Ox 04/20/19 08:00 58 L 04/20/19 07:29 36.6 C 64 19 151/75 H 96 04/20/19 04:00 36.7 C 62 18 125/77 96 04/20/19 00:00 61 04/19/19 23:43 36.7 C 60 20 121/67 94 PG Care Time/CCT Total # of Minutes Spent Total Time Spent with Patient: Total time spent is greater than 50% in coordination of care (as documented) at patient's floor/unit and/or counseling patient:
[2019-04-20] MEDS ORDERED: STROKE PATIENT DISCHARGE STA (11:50)
--- NOTE | 2019-05-06 12:33 | Discharge Summary ---
Date of Service April 20, 2019 Admission HPI Per Admitting Provider The patient is a 39-year-old male who initially developed some generalized weakness and dizziness during the afternoon of 04/18, was seen in the emergency department, received symptomatic treatment, with a negative work-up, and was then discharged home. He was awoken from sleep at 11:00 this evening by an abnormal facial sensation on the right, and decreased ability to control his right arm and right leg. His reports that he was unable to walk and needed help with balancing. He denies any recent trauma or any recent travel or sick exposures. The patient was assessed as a stroke alert, and underwent a CTA of the head without contrast which was negative. CTA of the neck showed a dissection of the right vertebral artery at the level of C1 and ascending, until the intracranial portion, seen in the CTA of the head showed an occluded right vertebral artery intracranially. The patient was assessed by tele-stroke from [facility], who suggested dual antiplatelet therapy. Admission Exam Per Admitting Provider The patient is awake, alert and oriented 3, well developed and well nourished, normocephalic and atraumatic, lying in bed and in no acute distress. HEENT--PERRL, EOMI, mucous membranes and oropharynx normal. Neck--supple. No JVD. No bruits. Thyroid normal, trachea midline, no adenopathy. Heart--normal S1 and S2. No murmurs, rubs or gallops. Lungs--clear bilaterally, no respiratory distress, no accessory muscle use. Abdomen--normal bowel sounds and soft. Nontender. Nondistended. Extremities--no cyanosis or clubbing. No edema. There are good distal pulses b/l. Dermatologic--normal skin turgor, normal color, no abnormal lymph nodes, no rash. Neurologic/rheumatologic-cranial nerves II through XII grossly intact except for the following abnormal right facial sensation. Abnormal vestibular function right upper extremity and right lower extremity Psychiatric--normal affect. 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 Type 2 diabetes mellitus Essential hypertension Hyperlipidemia Discharge Exam Constitutional well developed, well nourished and + obese Eyes PERRL, conjunctivae normal, anicteric sclerae Neck normal visual inspection, trachea midline and + thick neck; negative Kernig's sign Respiratory normal respiratory effort, lungs clear to auscultation Cardiovascular RRR, no murmur, no edema Gastrointestinal (Abdomen) normal bowel sounds, soft, nontender, no hepatosplenomegaly Musculoskeletal no cyanosis or clubbing, extremities motor strength 5/5 Spine: normal cervical ROM and Lhermitte's sign negative Skin no rashes, warm and dry Neurologic PERRL, EOMI, accommodation nl, no face palsy, no dysarthria normal touch/pain/proprioception, CN's II-XI intact bilaterally, moves all extremities and awake; no focal motor deficits and not confused Speech / Cognition: normal speech Motor/Sensory: no tremor, normal movement, no pronator drift and no sensory deficit Psychiatric A+Ox3, euthymic affect Discharge Data Allergies Allergy/AdvReac Type Severity Reaction Status Date / Time Penicillins Allergy Intermediate HAPPENED Verified 04/25/19 04:32 A CHILD Consultations 04/19/19 02:35 ED Decision to Admit Stat 04/19/19 03:18 Consult Case Management - Discharge Planning Routine 04/19/19 05:33 Consult Case Management - Discharge Planning Routine Consult Food Concession Manager Routine 04/19/19 07:51 Consult Neurology Routine Ordered Studies 04/19/19 00:30 CT angio neck with con Stat CT head/brain wo/w con Stat 04/19/19 01:34 MR brain wo/w con Urgent Hospital Course (1) Vertebral artery dissection: 1 week history of neck pain exacerbated 04/18 causing transient vertiginous, paresthesias of right side of face and arm. Suspected transient neurological dysfunction due to decreased flow from the dissection in the right posterior fossa. No CVA on MRI or from exam. Continue ASA + clopidogrel for 4-6 weeks then ASA alone Avoid usual work or heavy lifting for several weeks. Light work ok. Follow up with neurology in a few weeks. (2) Type 2 diabetes mellitus: Discussed with patient. Daughter has type 1 diabetes so knows a lot about dietary changes and has multiple improvements he can make. Wishes to try this first prior to starting any medication. Recommend following up with his PCP (3) Hypertension: Recommend close follow up with PCP. If blood pressure still elevated to start on anti-hypertensives. 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 This appeared to cause transient neurological dysfunction due to decreased flow from the dissection in the right posterior fossa of your brain causing your symptoms. You were treated with aspirin, clopidogrel and heparin. You will be discharged on aspirin and clopidogrel for at least 4 to 6 weeks, then aspirin only after this. Appointment will be arranged for you to follow-up with neurology, if you have not had anything in the next 7 days please call the number below. Recommend avoiding usual work and heavy lifting for several weeks. 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 Please follow-up with your PCP regarding hypertension, diabetes and hyperlipidemia. These are all risk factors for future strokes. We have not started any diabetes medications at this time as your glucose levels have been normal on a diabetic diet however your HbA1C was elevated suggesting higher glucose levels on your home diet. Pending Studies at Discharge: No Stand-Alone Forms: My [facility] [facility] Medications and DC Order Prescriptions: New clopidogrel 75 mg Tablet 75 mg PO QAM Qty: 30 RF: 0 aspirin [Ecotrin Low Strength] 81 mg Tablet,Delayed Release (Dr/Ec) 81 mg PO QAM Qty: 90 RF: 0 Continued acetaminophen [Tylenol Extra Strength] 500 mg Tablet 500 - 1,000 mg PO DIRECTED PRN (Reason: Pain) RF: 0 Discontinued ibuprofen 200 mg Tablet 400 - 800 mg PO DIRECTED PRN (Reason: Pain) RF: 0 Discharge Orders: Discharge Order (Routine); Ordered 04/20/19 Ordered By: Shankar Dominguez/Other Patient Handouts: A1C, Diabetes Eating Out, Diabetes Meal Planning, Diabetes Type 2, ED Diabetes General Info, ED Diet Diabetic Admission Data Admit Date/Time: 04/19/19 03:14 Attending Provider: Shankar Nguyen Admit Provider: [place] Primary Care Provider: Oly Pandya Other Providers: [place] ; Obey Pires Emile Pierre III Other Interventions: Discharge Summary Assessment (RN) Last Done: 04/20/19 11:57 DC Date/Time DO NOT enter until pt leaves facility: 04/20/19 12:56
== END 2019-04-20 12:56 | disposition home or self-care (01) | DRG 67 ==
LOC: ED 00:01 → 1E 03:14 → SUATTDRO 03:14 → 1E 03:45 → 2N 15:11